=== PATIENT | female | born 1970 ===

== ENCOUNTER 2018-02-09 10:55 | Day surgery (SDC) | payer OTHER | END 2018-02-09 14:50 | disposition home or self-care (01) | LOC: AMB-ENDOS 10:55 | DX: D13.1 Benign neoplasm of stomach (principal); K29.60 Other gastritis without bleeding; K44.9 Diaphragmatic hernia without obstruction or gangrene ==

== ENCOUNTER 2018-02-14 07:57 | Outpatient (CLI) | payer OTHER | END 2018-02-14 08:00 | disposition home or self-care (01) | LOC: RX STUDY 07:57 | DX: E66.01 Morbid (severe) obesity due to excess calories (principal); R00.0 Tachycardia, unspecified ==

== ENCOUNTER 2018-02-17 15:10 | Outpatient (CLI) | payer OTHER | END 2018-02-17 15:14 | disposition home or self-care (01) | LOC: RAD 15:10 | DX: R00.8 Other abnormalities of heart beat (principal); E66.01 Morbid (severe) obesity due to excess calories ==

== ENCOUNTER 2018-11-30 09:19 | Day surgery (SDC) | payer OTHER | END 2018-11-30 14:31 | disposition home or self-care (01) | LOC: AMB-ENDOS 09:19 | DX: K64.1 Second degree hemorrhoids (principal) ==